=== PATIENT | male | born 1950 ===

== ENCOUNTER 2020-03-23 01:14 | Observation (INO) | payer OTHER, MEDICARE ==
[~2020-03-23] VITALS: Ht 182.9 cm; Wt 75.2 kg
[~2020-03-23 01:14] MED LIST: FLUO20; METTREX2.5; [UNRECOGNIZED DRUG - OTHER]
[2020-03-23 01:53] LABS: BASOPHILS ABSOLUTE AUTO 0.03 K/mm3 (0.00-0.23); BASOPHILS PERCENT AUTO 0 % (0-2); EOSINOPHILS ABSOLUTE AUTO 0.16 K/mm3 (0.00-0.68); EOSINOPHILS PERCENT AUTO 2 % (0-6); Hematocrit 26.7 % (37.0-53.0); Hemoglobin 8.6 g/dL (13.5-17.5); IMMATURE GRAN ABSOLUTE AUTO 0.04 K/mm3 (0.00-0.10); IMMATURE GRAN PERCENT AUTO 1 % (0-1); LYMPHOCYTES ABSOLUTE AUTO 2.22 K/mm3 (0.84-5.20); LYMPHOCYTES PERCENT AUTO 30 % (21-46); MONOCYTES ABSOLUTE AUTO 0.92 K/mm3 (0.16-1.47); MONOCYTES PERCENT AUTO 12 % (4-13); Mean Corpuscular HGB 36.3 pg (26.0-34.0); Mean Corpuscular HGB Conc 32.2 g/dL (31.5-36.5); Mean Corpuscular Volume 113 fL (80-100); Mean Platelet Volume 9.1 fL (9.1-12.4); NEUTROPHILS ABSOLUTE AUTO 4.08 K/mm3 (1.96-9.15); NEUTROPHILS PERCENT AUTO 55 % (41-73); Platelet Count 134 K/mm3 (150-400); RDW Coefficient Variation 18.8 % (11.7-14.2); Red Blood Cell Count 2.37 M/mm3 (4.30-5.90); White Blood Cell Count 7.45 K/mm3 (4.00-11.30)
[2020-03-23 02:09] LABS: Alanine Aminotransfer (ALT/SGP 14 U/L (12-78); Albumin, Blood 1.7 g/dL (3.4-5.0); Albumin/Globulin Ratio 0.4 (0.8-1.8); Alk Phos 71 U/L (50-136); Anion Gap 5 mmol/L (6-16); Aspartate Aminotrans (AST/SGOT 66 U/L (12-37); Bilirubin, Total 7.1 mg/dL (0.1-1.0); Blood Urea Nitrogen 7 mg/dL (8-24); Bun/Creatinine Ratio 6.9 (12.0-20.0); CO2, Blood 31 mmol/L (21-32); Calcium, Blood 8.6 mg/dL (8.5-10.1); Chloride, Blood 100 mmol/L (98-108); Creatinine, Blood 1.02 mg/dL (0.60-1.20); Globulin, Blood 4.6 g/dL (2.2-4.0); Glomerular Filtration Rate >60 (60-); Glucose, Blood 86 mg/dL (70-99); Magnesium, Blood 1.8 mg/dL (1.6-2.4); Potassium, Blood 3.2 mmol/L (3.5-5.5); Sodium, Blood 136 mmol/L (136-145); Total Protein, Blood 6.3 g/dL (6.4-8.2); Troponin I 0.019 ng/mL (0.000-0.040)
[2020-03-23 02:12] LABS: International Normalized Ratio 1.67; Prothrombin Time Results 17.4 Sec (9.7-11.5)
[2020-03-23 03:27] LABS: Influenza A, PCR Negative (NEGATIVE); Influenza B, PCR Negative (NEGATIVE); Resp Syncytial Virus, PCR Negative (NEGATIVE); SARS-Cov-2 (COVID-19) PCR, MMC Negative (NEGATIVE)
[2020-03-23 03:37] LABS: Source, Urine Clean Catch
[2020-03-23 03:39] LABS: Blood, Urine 1+ (Neg); Glucose Qualitative, Urine Neg (Neg); Ketones, Urine 1+ (Neg); Leukocyte Esterase, Urine 1+ (Neg); Nitrite, Urine Pos (Neg); Protein, Urine 2+ (Neg); Urobilinogen, Urine 4+ (Normal)
[2020-03-23 03:56] LABS: Appearance, Urine Hazy (Clear); Bilirubin, Urine 3+ (Neg); Color, Urine Amber (P-Yellow)
[2020-03-23 03:58] LABS: Bacteria Few /hpf; Hyaline Casts 0-2 /lpf (0-2); Squamous Epithelial Cells Few /hpf (Few)
--- NOTE | 2020-03-23 06:24 | NUR ---
0600 PT ADMITTED TO ROOM 329 PER CART FROM ER VIA CART; REPORT RECEIVED FROM JASSI RADFORD IN ER; PTS WALLET WAS LOCKED UP VIA HOSPITAL SECURITY TO SAFE; PT ALERT AND ORIENTED X4; BED ALARM APPLIED FOR SAFETY.
--- NOTE | 2020-03-23 09:53 | NUR ---
Echocardiogram completed.
[2020-03-23] MEDS ORDERED: A AND D OINTM42.5 G1 TOP (09:57)
[2020-03-23] MEDS ORDERED: CALCIPOTRIENE60 G1 TOP (09:59)
[2020-03-23] MEDS ORDERED: DOXE50 PO (09:59)
[2020-03-23] MEDS ORDERED: FURO20 PO (10:01)
[2020-03-23] MEDS ORDERED: TAMS.4ER PO (10:01)
[2020-03-23] MEDS ORDERED: POTCHL20ER PO (10:01)
[2020-03-23 11:41] LABS: pH, Body Fluid 7.9
[2020-03-23 11:47] LABS: Albumin, Body Fluid 0.3 g/dL
[2020-03-23 11:49] LABS: Body Fluid WBC Count 140 /mm3 (0-999)
[2020-03-23 11:55] LABS: Protein, Body Fluid 0.9 g/dL
[2020-03-23 11:57] LABS: Lactate Dehydrogenase, Body Fl 29 U/L
[2020-03-23 12:17] LABS: Total Cell Count, Body Fluid 100
[2020-03-23 12:18] LABS: Appearance, Body Fluid Hazy (Clear); Color, Body Fluid Yellow (None-Yellow)
[2020-03-23 12:21] LABS: RBC Count, Body Fluid 7 /mm3 (0-0)
--- NOTE | 2020-03-23 12:40 | NUR ---
DNR BAND PLACED TO R WRIST. VERIFIED ORDER WITH JESSICA CREWS RN
--- NOTE | 2020-03-23 17:01 | NUR ---
LACK OF OUTPUT FROM STRAIGHT CATH PT HAD LITTLE TO NO OUTPUT AFTER STRAIGHT CATH. AFTER TALKING TO HANDLE MACHINE OPERATOR, JESSICA, IT WAS THOUGHT THAT ACITES MAY BE CONTRIBUTING TO A HIGHER BLADDER VOLUME THAN WHAT IS ACUTALLY THERE. DR. BEST NOTIFIED AND AGREES THIS IS LIKELY THE PROBLEM. URINE EXTREMELY CONCENTRATED, CONSISTANT WITH A SMALL AMOUNT OF URINE IN BLADDER. DR. BEST ORDERED TO CONTINUE MONITORING URINE OUTPUT FOR NOW.
--- NOTE | 2020-03-23 17:40 | NUR ---
SHIFT SUMMARY PT HAD PARACENTESIS TODAY WITH 4L REMOVED FROM ABD. PT VOIDED ONLY A SMALL AMOUNT TODAY. VERY CONCENTRATED URINE. PT POST VOID RESIDUAL REVEALED MORE THAN 715. STRAIGHT CATH COMPLETED WITH ONLY A FEW DROPS OF URINE OUTPUT. LIKELY PT LEFT OVER ACITES LEADING TO A FALSLY ELEVATED BLADDER SCAN VOLUME. DR. BEST AWARE. PT AFTERNOON BP 96/54. PROPRANOLOL HELD PER DR. BEST ORDER. PARAMETERS ADDED TO ORDER. PT EVAL COMPLETED THIS SHIFT. VS REVIEWED. WILL CONTINUE TO MONITOR UNTIL TURNOVER IS COMPLETE.
--- NOTE | 2020-03-23 19:25 | NUR ---
ASSUMED CARE RECEIVED REPORT FROM JASSI STANTON. ASSUMED CARE OF PT. PT ASLEEP AT THIS TIME, NO S/S ACUTE DISTRESS NOTED. DENIES PAIN OR NEEDS. CALL LIGHT, POSSESSIONS IN REACH, BED IN LOW POSITION. WCTM.
[2020-03-24 05:45] LABS: Hematocrit 22.8 % (37.0-53.0); Hemoglobin 7.3 g/dL (13.5-17.5); Mean Corpuscular HGB 36.1 pg (26.0-34.0); Mean Corpuscular Volume 113 fL (80-100); Mean Platelet Volume 9.2 fL (9.1-12.4); Platelet Count 110 K/mm3 (150-400); RDW Coefficient Variation 18.3 % (11.7-14.2); RDW Standard Deviation 75.7 fL (35.1-46.3); Red Blood Cell Count 2.02 M/mm3 (4.30-5.90); White Blood Cell Count 4.98 K/mm3 (4.00-11.30)
[2020-03-24 06:06] LABS: Alanine Aminotransfer (ALT/SGP 11 U/L (12-78); Albumin, Blood 1.6 g/dL (3.4-5.0); Albumin/Globulin Ratio 0.5 (0.8-1.8); Alk Phos 60 U/L (50-136); Anion Gap 4 mmol/L (6-16); Aspartate Aminotrans (AST/SGOT 45 U/L (12-37); Blood Urea Nitrogen 7 mg/dL (8-24); Bun/Creatinine Ratio 7.4 (12.0-20.0); CO2, Blood 30 mmol/L (21-32); Chloride, Blood 100 mmol/L (98-108); Creatinine, Blood 0.94 mg/dL (0.60-1.20); Globulin, Blood 3.5 g/dL (2.2-4.0); Glomerular Filtration Rate >60 (60-); Glucose, Blood 115 mg/dL (70-99); Potassium, Blood 3.3 mmol/L (3.5-5.5); Sodium, Blood 134 mmol/L (136-145); Total Protein, Blood 5.1 g/dL (6.4-8.2)
[2020-03-24 06:26] LABS: BASOPHILS PERCENT MAN 0 % (0-2); EOSINOPHILS ABSOLUTE MAN 0.09 K/mm3 (0.00-0.68); EOSINOPHILS PERCENT MAN 2 % (0-6); LYMPHOCYTES ABSOLUTE MAN 1.59 K/mm3 (0.84-5.20); LYMPHOCYTES PERCENT MAN 32 % (21-46); MONOCYTES ABSOLUTE MAN 0.49 K/mm3 (0.16-1.47); MONOCYTES PERCENT MAN 10 % (4-13); NEUTROPHILS ABSOLUTE MAN 2.78 K/mm3 (1.96-9.15); SEG NEUTROPHILS PERCENT MAN 56 % (41-73); TOTAL CELLS COUNTED 100
--- NOTE | 2020-03-24 07:30 | NUR ---
SHIFT SUMMARY PT RESTING COMFORTABLY, NO S/S ACUTE DISTRESS NOTED. WAS MONITORED EVERY 1-2 HOURS WITH NEEDS MET. VS REVIEWED, WNL. NOT SCORING ON CIWAS. PT BLADDER SCANNED THIS SHIFT, REPORTED >551ML. PT REFUSED STRAIGHT CATH. NO OTHER ACUTE EVENTS NOTED T/O NIGHT, SLEPT ON AND OFF. PT DENIES PAIN OR NEEDS AT THIS TIME. CALL LIGHT, POSSESSIONS IN REACH, BED IN LOW POSITION. REPORT GIVEN TO JASSI REYES.
[2020-03-24 08:10] LABS: HBSAG SCREEN Negative (Negative); HEP B CORE AB, TOT Negative (Negative); HEP C VIRUS AB 0.2 (0.0-0.9)
--- NOTE | 2020-03-24 19:24 | NUR ---
PT REALLY DID NOT WANT STRAIGHT CATH TODAY. REFUSING T/O DAY. STATED PAIN UPON INSERTION. FINALY CONVINCED HIM TO DO WITH LIDOCAIN. DR QUEEN AGREED. REJECTED INDWELLING F/C. HAD PUT A CONDOM CATH ON PT TO HELP HIM IN URINATING, BUT NOT ON SELF. SEEMED TO MAKE HIM MORE COMFORTABLE. GOT 150 CC OUT TODAY. ALSO, STRAIGHT CATHED. GOT ONLY 50 CC. ALSO BLADDERR SCAN SHOWS 999+. THIS IS LIKELY R/T THE ASCIETES PER . DR ALFREDO STOP BLADDER SCANS. NO OTHER CONCERNS TODAY. NO S/S ETOH WITHDRAWL. PT PLEASANT COOP T/O DAY. BED IN LOW POSITION, CALL LLITE IN REACH, CALLS APPROP
--- NOTE | 2020-03-24 20:30 | NUR ---
CALL TO HOSPITALIST, PT REQUESTING MED FOR SLEEP. DR. BECKHAM ORDERED MELATONIN 5MG PO QHS.
[2020-03-25 05:07] LABS: BASOPHILS ABSOLUTE AUTO 0.03 K/mm3 (0.00-0.23); BASOPHILS PERCENT AUTO 1 % (0-2); EOSINOPHILS ABSOLUTE AUTO 0.19 K/mm3 (0.00-0.68); EOSINOPHILS PERCENT AUTO 4 % (0-6); Hematocrit 23.9 % (37.0-53.0); Hemoglobin 7.8 g/dL (13.5-17.5); IMMATURE GRAN ABSOLUTE AUTO 0.03 K/mm3 (0.00-0.10); IMMATURE GRAN PERCENT AUTO 1 % (0-1); LYMPHOCYTES ABSOLUTE AUTO 1.55 K/mm3 (0.84-5.20); LYMPHOCYTES PERCENT AUTO 33 % (21-46); MONOCYTES ABSOLUTE AUTO 0.65 K/mm3 (0.16-1.47); MONOCYTES PERCENT AUTO 14 % (4-13); Mean Corpuscular HGB 36.4 pg (26.0-34.0); Mean Corpuscular HGB Conc 32.6 g/dL (31.5-36.5); Mean Corpuscular Volume 112 fL (80-100); NEUTROPHILS ABSOLUTE AUTO 2.32 K/mm3 (1.96-9.15); NEUTROPHILS PERCENT AUTO 49 % (41-73); Platelet Count 101 K/mm3 (150-400); RDW Coefficient Variation 17.8 % (11.7-14.2); RDW Standard Deviation 73.4 fL (35.1-46.3); Red Blood Cell Count 2.14 M/mm3 (4.30-5.90); White Blood Cell Count 4.77 K/mm3 (4.00-11.30)
--- NOTE | 2020-03-25 05:10 | NUR ---
SHIFT SUMMARY: VSS. AFEB. AAOX3. DENIES PAIN. ABD LARGE, ROUND, DISTENDED, FIRM TO TOUCH. GENERAL JAUNDICED APPEARANCE. PT REMAINED IN BED AND SLEPT MOST OF THE NIGHT. INCONTINENT VOIDS. NO ACUTE CONCERNS AT THIS TIME.
[2020-03-25 05:28] LABS: Alanine Aminotransfer (ALT/SGP 12 U/L (12-78); Albumin, Blood 1.6 g/dL (3.4-5.0); Albumin/Globulin Ratio 0.4 (0.8-1.8); Alk Phos 69 U/L (50-136); Anion Gap 5 mmol/L (6-16); Aspartate Aminotrans (AST/SGOT 45 U/L (12-37); Bilirubin, Total 3.4 mg/dL (0.1-1.0); Blood Urea Nitrogen 7 mg/dL (8-24); Bun/Creatinine Ratio 7.8 (12.0-20.0); CO2, Blood 30 mmol/L (21-32); Calcium, Blood 8.2 mg/dL (8.5-10.1); Chloride, Blood 98 mmol/L (98-108); Globulin, Blood 3.8 g/dL (2.2-4.0); Glomerular Filtration Rate >60 (60-); Glucose, Blood 109 mg/dL (70-99); Potassium, Blood 3.5 mmol/L (3.5-5.5); Sodium, Blood 133 mmol/L (136-145); Total Protein, Blood 5.4 g/dL (6.4-8.2)
--- NOTE | 2020-03-25 16:25 | NUR ---
PT IS A/OX3, PLEASANT AND COOPERATIVE, THE PT APPEARS TO BE BREATHING EASILY ON RA AT THIS TIME, THE PT WAS UP THIS AM WITH ASSISTANCE TO THE CHAIR FOR BREAKFAST AND TO THE BS, THE PT HAD A MEDIUM SIZED FORMED BM THIS AM, THE PT IS DUSKY IN COLOR, ABD IS FIRM AND DISTENDED, PT DENIES ANY PAIN AT THIS TIME, PT WAS UP WITH THE PHYSICAL THERAPIST TODAY AND STOOD AT THE SIDE OF THE BED, FRIEND IS AT THE BEDSIDE AT THIS TIME, CALL LIGHT IN REACH, WILL CONTINUE TO MONITOR AND ASSESS FOR CHANGES
--- NOTE | 2020-03-26 04:12 | NUR ---
SHIFT SUMMARY: VSS. AFEB. 02 96% ON RA. ABD LARGE, ROUND, DISTENDED, TENDER W/PALPATION. APPEARS JAUNDICED. DENIES PAIN. DENIES SOB. REMAINED IN BED TONIGHT. APPEARS TO BE SLEEPING WELL. WILL CONT TO MONITOR.
--- NOTE | 2020-03-26 16:48 | NUR ---
PT IS A/OX3, PLEASANT AND COOPERATIVE, THEPT IS UP WITH MODERATE ASSIST, THE PT WAS UP IN THE CHAIR X1 TODAY, THE PT WAS UP WITH PHYSICAL THERAPY AND WAS ABLE TO WALK A SHORT DISTANCE, THE PT APPEARS TO BE BREATHING EASILY ON RA AT THIS TIME, PT ABD IS GROSSLY DISTENDED AND FIRM, PT STATES THAT HE IS FEEL ING REALY FULL AND TIGHT AND WOULD LIKE PERSUE ANOTHER PARACENTISIS IF POSSIBLE BEFORE DC, PTS CALL LIGHT IS WITHIN REACH, PTS FRIEND CAME IN TO VISIT WITH HIM TODAY
[2020-03-27 04:59] LABS: Alanine Aminotransfer (ALT/SGP 12 U/L (12-78); Albumin, Blood 1.6 g/dL (3.4-5.0); Albumin/Globulin Ratio 0.4 (0.8-1.8); Alk Phos 72 U/L (50-136); Anion Gap 6 mmol/L (6-16); Aspartate Aminotrans (AST/SGOT 48 U/L (12-37); Bilirubin, Total 2.4 mg/dL (0.1-1.0); Blood Urea Nitrogen 8 mg/dL (8-24); Bun/Creatinine Ratio 8.8 (12.0-20.0); CO2, Blood 29 mmol/L (21-32); Calcium, Blood 8.4 mg/dL (8.5-10.1); Chloride, Blood 96 mmol/L (98-108); Creatinine, Blood 0.91 mg/dL (0.60-1.20); Globulin, Blood 3.8 g/dL (2.2-4.0); Glomerular Filtration Rate >60 (60-); Glucose, Blood 128 mg/dL (70-99); Potassium, Blood 3.7 mmol/L (3.5-5.5); Sodium, Blood 131 mmol/L (136-145); Total Protein, Blood 5.4 g/dL (6.4-8.2)
--- NOTE | 2020-03-27 06:08 | NUR ---
SUMMARY PTHOPING TO GO TO A SNF SOON. HE IS ASKING THAT ANOTHER THERAPEUTIC PARACENTESIS IS DONE PRIOR TO ANY TRANSFER.HE WILL SPEAK WITH REGARDING THIS. I WILL ALSO MENTION IN REPORT TO NEXT SHIFT. AT THIS TIME NO KNOWN SNF BED AVAILABILITY.
--- NOTE | 2020-03-27 17:36 | NUR ---
SHIFT SUMMARY PT RESTING QUIETLY AT START OF SHIFT. WOKE EASILY FOR CARE. TOLERATED MEDS, BUT NOT EATING VERY MUCH AT ALL. ABD VERY SWOLLEN AND TIGHT. PT IS VERY SWOLLEN FROM TOP OF ABD TO BOTTOM OF FEET, INCLUDING SCROTUM; ALL SKIN IS VERY TIGHT AND SOMEWHAT SHINNY. PT WAITING TO BE D/C'D TO SNF ON SUNDAY. PARACENTESIS TO BE DONE AGAIN POSSIBLY TOMORROW FOR COMFORT. PT ADMITTED FOR CIRRHOSIS AND ASCITES. REPORTS THAT HE LIVES ALONE. PT UNABLE TO CARE FOR HIMSELF AT THIS TIME D/T HIS CONDITION AND WEAKNESS. BLE'S VERY DARK AND SWOLLEN; KEPT ELEVATED ON PILLOWS THRU OUT THE DAY. PT UP TO CHAIR AFTER BREAKFAST FOR A FEW MINUTES AND THEN WANTING RIGHT BACK TO BED. P/T HERE TO WORK WITH PT THIS AM. DR QUEEN IN TO SEE PT TODAY. POSSIBLE PARACENTESIS TOMORROW. VISITOR HERE EARLIER TO SEE PT. PT RESTING QUIETLY AT THIS TIME. CALL LT IN REACH.
[2020-03-28 05:18] LABS: Alanine Aminotransfer (ALT/SGP 15 U/L (12-78); Albumin, Blood 1.5 g/dL (3.4-5.0); Albumin/Globulin Ratio 0.4 (0.8-1.8); Alk Phos 62 U/L (50-136); Anion Gap 7 mmol/L (6-16); Aspartate Aminotrans (AST/SGOT 51 U/L (12-37); Bilirubin, Total 2.5 mg/dL (0.1-1.0); Blood Urea Nitrogen 9 mg/dL (8-24); Bun/Creatinine Ratio 11.5 (12.0-20.0); CO2, Blood 27 mmol/L (21-32); Calcium, Blood 8.5 mg/dL (8.5-10.1); Chloride, Blood 96 mmol/L (98-108); Creatinine, Blood 0.79 mg/dL (0.60-1.20); Globulin, Blood 3.8 g/dL (2.2-4.0); Glomerular Filtration Rate >60 (60-); Glucose, Blood 110 mg/dL (70-99); Potassium, Blood 3.8 mmol/L (3.5-5.5); Sodium, Blood 130 mmol/L (136-145); Total Protein, Blood 5.3 g/dL (6.4-8.2)
--- NOTE | 2020-03-28 06:38 | NUR ---
03/28/20 0600 PT SELPT WELL. RN ENCOURAGED ORAL INTAKE ON AND OFF BUT PT DECLINED MORE THAN FEW SIPS AT A TIME. STRESSED IMPORTANCE OF NUTRITION BUT STATES HE WAS NOT THIRSTY OR HUNGRY. SLIGHT FEVER AROUND 2 AM. NO C/O DISCOMFORT.
--- NOTE | 2020-03-28 10:05 | NUR ---
Spoke with Bedside JASSI Hawley and discussed case. Pt is adamant about leaving AMA. Pt has end stage liver disease and requires 2 person assistance with transfers. Pt requires one persaon stanbye with walker and gait belt with ambulation. Pt only able to ambulate from bed to chair and back. Pt requires assistance with bathing, dressing, and is incontinent of bowel and bladder. Pt also has poor appetite. Pt resting in bed with sleep mask ever his eyes. Pt reports 9/10 pain in his abdomen. Significant abdomen distention noted. Pt appears cachetic. Engaged in therapeutic listening as Pt reports plan to leave for home today. Continued therapeutic listening and validated concerns. Pt is wanting to go home, put his sweat pants on and smoke a cigarrette. Discussed potential alternate solutions, such as wearing his sweat pants here at the hospital and wearing a nicotine patch. Pt still adamant about returning home today. Listened as Pt reports dislike of being in the hospital. Discussed hospice as a potential option. Educated on hospice philosophy with Pt reporting interest. Discussed the need to arrange hospice services which could potential take a day or two. Pt reports plan to still leave AMA today. Pt is agreeable to paracentesis if this can occur today. Pt reports no other concerns at this time. Spoke with Dr Liz and discussed case. PPS 50% ADLs 5/6 INR 1.67 Albumin 1.5 Ongoing ascites with last paracentesis on 03/23/20 Pt appears appropriate for hospice if he chooses this option. Palliative Care will remain available.
--- NOTE | 2020-03-28 12:44 | NUR ---
SHIFT SUMMARY PT RESTING QUIETLY AT START OF SHIFT. PT WANTING TO GO HOME EARLY THIS AM. DR QUEEN IN TO SEE PT; ATTEMPTED TO DISCUSS PLAN OF CARE AND GOING TO SNF POSSIBLY TOMORROW. PT WANTING AND INSISTING ON GOING AMA. PT UNABLE TO CARE FOR HIMSELF AT HOME. 2P ASSIST TO GET OOB AND UP TO CHAIR. PT DID DO BETTER TODAY IN GETTING TO CHAIR FOR BREAKFAST, BUT STILL REQUIRED 2P ASSIST TO GET UP AND DOWN. PT ABLE TO USE WALKER TO TAKE A COUPLE OF STEPS TODAY, WITH 1P ASSIST AFTER GETTING UP, TO GET TO CHAIR AND AGAIN BACK TO THE BED. PT UNABLE TO SIT UP FOR MORE THAN JUST A COUPLE OF MINUTES AND IMMEDIATELY WANTING TO LAY BACK DOWN. PT SCHEDULED FOR PARACENTESIS; SLIDE TX TO [place], 6.8L FLUID REMOVED. PT NOW RECEIVING ALBUMIN PER PHARMACY AFTER COMING BACK TO ROOM. PT ATE A LITTLE BETTER TODAY THAN HE HAS BEEN. STILL NOT ENOUGH, BUT IMPROVED. PALLIATIVE CARE IN TO TALK WITH PT THIS AM. PT WANTING TO GO HOME ON HOSPICE. REFERRAL TO BE PUT IN. CARNIVAL WORKER TO WORK ON DETAILS TOMORROW. PT LATER REPORTED THAT HE WILL "CLEAN UP MY ATTITUDE" AND NOT GO AMA AT THIS POINT TODAY. PT IS ALSO INCONTINENT OF BOWEL AND BLADDER FOR THE MOST PART, HE IS UNABLE TO GET TO THE BATHRM OR EVEN BSC. RESTING QUIETLY WITH EYE MASK ON. DENIED FURTHER NEEDS AT THIS TIME. CALL LT IN REACH.
--- NOTE | 2020-03-29 07:25 | NUR ---
03/29/20 0600 VITALS STABLE. STILL ONLY KELL SMALL ATS OF ORAL INTAKE. TURNED WHEN HE WOULD LET STAFF REPOSITION OF BACK. MEPILEX APPLIED TO RED COCCYX ARE.
--- NOTE | 2020-03-29 14:55 | NUR ---
LEMON PICKER BANDAR AT BEDSIDE AND PATIENT FILLED OUT AMA FORM. RISKS OF LEAVING AMA WERE DISCUSSED WITH PATIENT AND HE CONTINUES TO WANT TO LEAVE INSTEAD OF GOING TO THE [facility] ON HOSPICE CARE. FRIEND GONZALO ARRIVED TO WILDLIFE PHOTOGRAPHER PATIENT AND SHE DID NOT BRING A W/C. GONZALO WAS UNAWARE THAT PATIENT WAS REQUIRING 2 MAX ASSIST WITH TRANSFERRING. SHE WAS ALSO UNAWARE THAT PATIENT WAS LEAVING AMA AND THAT STAFF WOULD NOT BE ABLE TO ASSIST WITH HIM LEAVING. GONZALO EXPRESSED TO ME AND THE PATIENT THAT SHE DID NOT FEEL COMFORTABLE TAKING HIM HOME AND DID NOT FEEL THAT SHE WOULD BE ABLE TO TRANSFER HIM IN AND OUT OF THE CAR AND INTO HIS HOUSE. PATIENT CONTINUED TO INSIST THAT SHE TAKE HIM HOME AND HANDED HER HIS CREDIT CARD TO GO BY [employer] AND GET HIM A W/C. GONZALO TOLD HIM THAT SHE WOULD BE BACK IN A FEW HOURS, BUT STOPPED ME IN THE [place] IN TEARS AND SAID SHE WOULD CALL HIM IN A FEW HOURS AND TELL HIM AGAIN THAT SHE IS UNABLE TO TAKE HIM HOME IN HIS CURRENT STATE. BANDAR WAS NOTIFIED OF THIS AND WILL CONTINUE TO FACILITATE TRANSFER OPTIONS IF PATIENT IS UNABLE TO ARRANGE A RIDE HOME.
--- NOTE | 2020-03-29 17:12 | NUR ---
PATIENT CONTINUES TO WANT TO LEAVE AMA, BUT HASN'T FOUND SOMEONE TO COME AND PICK HIM UP. PLEURX DRAIN WILL NOT BE PLACED FOR 4-5 MORE DAYS SINCE PARACENTESIS WAS JUST DONE YESTERDAY. CARE MANAGERS CONTINUE TO LOOK FOR PLACEMENT FOR PATIENT TO GO ON HOSPICE. MEPILEX TO COCCYX REMAINS C/D/I. REPOSITIONING Q2 HOURS. PAIN TO BLE RELIEVED WITH REPOSITIONING. CALLS APPROPRIATELY FOR ASSISTANCE.
--- NOTE | 2020-03-30 00:22 | NUR ---
ATTEMPTS TO LEAVE AMA PT CALLED STAFF TO INFORM US HE CALLED A CAB. THIS NURSE REMINDED PT THAT IN ORDER TO LEAVE AMA HE HAS TO BE ABLE TO GET UP OOB AND PHYSICALLY LEAVE THE BUILDING INDEPENDENTLY. PT STATES HE UNDERSTANDS AND HE HAS "SOMEONE FROM EMERGENCY COMING UPSTAIRS TO GET ME". WILL CONT TO MONITOR THE SITUATION.
--- NOTE | 2020-03-30 03:40 | NUR ---
PT REQUESTING DNR BAND BE REMOVED. WANTS TO BE FULL CODE. ANSWERING ALL ORIENTATION QUESTIONS APPOPRIATELY. A/OX4. NURSE NOTIFY WRITTEN AND WILL DISCUSS W/DAY RN TO ASK MD TO REVIEW CODE STATUS W/PT TODAY.
--- NOTE | 2020-03-30 06:34 | NUR ---
SHIFT SUMMARY: VSS. AFEB. TEMPS 99.0, 99.7. NO FURTHER COMMENTS TONIGHT ABOUT LEAVING AMA. ABD FIRM, MILDLY DISTENDED. REMAINED IN BED. DENIES PAIN. INCONT/CONT VOIDS, SMALL AMT EACH TIME. PT MAKES NEEDS KNOWN. NO ACUTE CHANGES.
--- NOTE | 2020-03-30 12:47 | NUR ---
Supportive Visit Pt resting in bed upon arrival. Engaged in therapeutic listening as Pt expresses wishes about returning home with hospice versus SNF with hospice. Pt reports beeing more comfortable at home and feels powerless in his D/C plan. Continued therapeutic listening as Pt expresses concerns regarding his lack of autonomy. Validated concerns and answered questions. Pt reports being a and states he is 70% service connected. Pt inquires about the OR binder and wrapper packer program. Pt reports still being interested in hospice and wishes to avoid hospitalization but states he would prefer to be at home. Instructed his request will be relayed to care. Listened as Pt reports changing his code status to Full Code. Explored reasons with Pt stating his brother committed suicide and the family was devastated. Re-enforced education on hospice philosophy with Pt stating he still wants hospice. Spoke with Bedside RN Talia and discussed case. Left message with Caremanager Weinberg with request to discuss case. Palliative Care will remain available.
--- NOTE | 2020-03-30 15:33 | NUR ---
F/U joint visit with Caremanager Sultana. Engaged in therapeutic discussion regarding goals of care. Pt reports he is no longer interested in pursuing hospice. He states he wants to try and get better and have a conversation with his children regarding his condition. Discussed the need for SNF to assist with increased function and strength. Pt agreeable with SNF and is also agreeable for caremanager to inquire about [facility] for when he returns home. Continued therapeutic listening and answered questions. Spoke with Dr Weathers and discussed case. Palliative Care will remain available.
--- NOTE | 2020-03-30 16:15 | NUR ---
PATIENT SPOKE AT LENGTH WITH PALLIATIVE CARE AND LOCATION DIRECTOR TODAY AND HAS DECIDED TO GO TO A SNF FOR REHAB. WORKED WITH PT TODAY AND WAS ABLE TO AMBULATE TO DOOR AND BACK TO BED. INCONTINENT OF URINE, WEARING ATTENDS. MEPILEX TO PRESSURE SORE ON SACRUM REMAINS C/D/I. FEET ELEVATED ON PILLOW AND HEEL PROTECTORS IN PLACE. TOLERATING SMALL AMOUNTS OF REGULAR DIET, NEEDS ENCOURAGEMENT. ABLE TO FEED HIMSELF. IV PULLED AND PATIENT REFUSES TO HAVE ANOTHER LINE STARETED. COOPERATIVE WITH CARE TODAY AND ABLE TO MAKE NEEDS KNOWN.
--- NOTE | 2020-03-30 17:22 | NUR ---
Initial spiritual care note: Mr. Caceres is soft-spoken and appears quite frail/debillitated. He appears to have poor insight into his disease process even though his dire prognosis has been explained to him. He wants to have "everything done" to stay alive. That said, he does not want to have to come back to hospital. He would like to keep drinking and smoking in his own home. He says he has good friends that help him with groceries and some ADLs, but they are not present 23/10. He spoke at length to me about the loss of his brother several years ago to suicide. It appears his drinking escalated after this event. He seems to think he will somehow get better/stronger once home. He has no intention of changing his lifestyle. His is unwilling to live anywhwere but in his own home. All this said, he was pleasant and appreciative of theraputic listening. He is non-jewish and did not want prayer/spiritual support. I will remain available.
[2020-03-31 05:30] LABS: BASOPHILS ABSOLUTE AUTO 0.08 K/mm3 (0.00-0.23); BASOPHILS PERCENT AUTO 2 % (0-2); EOSINOPHILS ABSOLUTE AUTO 0.26 K/mm3 (0.00-0.68); EOSINOPHILS PERCENT AUTO 6 % (0-6); Hematocrit 25.3 % (37.0-53.0); Hemoglobin 8.3 g/dL (13.5-17.5); IMMATURE GRAN ABSOLUTE AUTO 0.05 K/mm3 (0.00-0.10); IMMATURE GRAN PERCENT AUTO 1 % (0-1); LYMPHOCYTES ABSOLUTE AUTO 1.66 K/mm3 (0.84-5.20); LYMPHOCYTES PERCENT AUTO 36 % (21-46); MONOCYTES ABSOLUTE AUTO 0.65 K/mm3 (0.16-1.47); MONOCYTES PERCENT AUTO 14 % (4-13); Mean Corpuscular HGB 36.9 pg (26.0-34.0); Mean Corpuscular HGB Conc 32.8 g/dL (31.5-36.5); Mean Corpuscular Volume 112 fL (80-100); NEUTROPHILS ABSOLUTE AUTO 1.93 K/mm3 (1.96-9.15); NEUTROPHILS PERCENT AUTO 42 % (41-73); Platelet Count 126 K/mm3 (150-400); RDW Coefficient Variation 15.7 % (11.7-14.2); Red Blood Cell Count 2.25 M/mm3 (4.30-5.90); White Blood Cell Count 4.63 K/mm3 (4.00-11.30)
[2020-03-31 05:51] LABS: International Normalized Ratio 1.36; Prothrombin Time Results 14.3 Sec (9.7-11.5)
[2020-03-31 06:04] LABS: Percent Saturation 45.4 % (20.0-50.0)
--- NOTE | 2020-03-31 06:29 | NUR ---
SHIFT SUMMARY PT IS A 69 Y/O MALE, ADMITTED FOR CIRRHOSIS AND NEW ONSET ASCITES R/T CHRONIC ETOH. HE IS A&O X 4, IRRITABLE AT TIMES. NO C/O PAIN, NAUSEA OR SOB. BP WAS LOW THIS AM, IN THE 80-90S SYSTOLIC. VITAL SIGNS OTHERWISE STABLE. NO ACUTE CHANGES IN PT CONDITION NOTED DURING THE NIGHT. WILL CONTINUE TO MONITOR AND TREAT PER EMAR UNTIL HAND OFF TO DAY SHIFT RN.
[2020-03-31 07:33] LABS: Alanine Aminotransfer (ALT/SGP 13 U/L (12-78); Albumin, Blood 1.8 g/dL (3.4-5.0); Albumin/Globulin Ratio 0.5 (0.8-1.8); Alk Phos 57 U/L (50-136); Anion Gap 5 mmol/L (6-16); Aspartate Aminotrans (AST/SGOT 36 U/L (12-37); Bilirubin, Total 2.2 mg/dL (0.1-1.0); Blood Urea Nitrogen 8 mg/dL (8-24); Bun/Creatinine Ratio 8.9 (12.0-20.0); CO2, Blood 28 mmol/L (21-32); Calcium, Blood 8.2 mg/dL (8.5-10.1); Chloride, Blood 98 mmol/L (98-108); Globulin, Blood 3.6 g/dL (2.2-4.0); Glomerular Filtration Rate >60 (60-); Glucose, Blood 116 mg/dL (70-99); Magnesium, Blood 1.7 mg/dL (1.6-2.4); Phosphorus, Blood 2.2 mg/dL (2.5-4.9); Potassium, Blood 3.7 mmol/L (3.5-5.5); Sodium, Blood 131 mmol/L (136-145); Total Protein, Blood 5.4 g/dL (6.4-8.2)
--- NOTE | 2020-03-31 17:21 | NUR ---
1420 PT ASSIST TO W/C, FRIEND AT BEDSIDE. FRIEND WHEELED PT TO GO TO VISITOR SMOKING AREA. 1550 PT DID NOT RETURN TO ROOM. SECURITY NOTIFIED. 1630 SECURITY NOTIFIED THIS RN THAT PT LEFT IN CAR AT 1435. 1715 DR[address] MACHADO NOTIFIED.
== END 2020-03-31 16:30 | disposition left against medical advice (07) ==
LOC: ER 01:14 → MEDS 01:15
PROVIDERS: Emergency Medicine; Internal Medicine; ADMIT Internal Medicine
DX: K70.31 Alcoholic cirrhosis of liver with ascites (principal); K70.11 Alcoholic hepatitis with ascites; F10.20 Alcohol dependence, uncomplicated; E87.6 Hypokalemia; K76.6 Portal hypertension; E88.09 Other disorders of plasma-protein metabolism, not elsewhere classified; E87.1 Hypo-osmolality and hyponatremia; F43.10 Post-traumatic stress disorder, unspecified; N40.0 Benign prostatic hyperplasia without lower urinary tract symptoms; L40.9 Psoriasis, unspecified; G47.00 Insomnia, unspecified; D63.8 Anemia in other chronic diseases classified elsewhere; D68.9 Coagulation defect, unspecified; R64 Cachexia; D69.6 Thrombocytopenia, unspecified; Z53.29 Procedure and treatment not carried out because of patient's decision for other reasons; F32.9 Major depressive disorder, single episode, unspecified; Z20.828 Contact with and (suspected) exposure to other viral communicable diseases; Z79.899 Other long term (current) drug therapy; Z88.0 Allergy status to penicillin; Z68.23 Body mass index [BMI] 23.0-23.9, adult; Z74.09 Other reduced mobility; Z23 Encounter for immunization
CPT/HCPCS: 0241U; 36415; 49083; 71045; 74177; 80053; 81001; 82042; 82140; 82607; 82728; 82746; 83540; 83550; 83615; 83690; 83735; 83880; 83986; 84100; 84157; 84484; 85025; 85610; 85730; 86317; 86704; 86708; 86803; 87070; 87086; 87205; 87340; 88108; 88305; 89051; 93005; 93010; 93306; 96365; 96366; 96367; 97110; 97116; 97161; 97530; 99285-25; A9270; G0378; J3411; J3475; J7042; P9046; Q9967

== ENCOUNTER 2020-05-25 14:08 | Day surgery (SDC) | payer OTHER ==
[~2020-05-25 14:08] MED LIST changes: +A AND D OINTM42.5 G1 TOP; +CALCIPOTRIENE60 G1 TOP; +DOXE50 PO; +FURO20 PO; +POTCHL20ER PO; +TAMS.4ER PO
== END 2020-05-25 23:06 | disposition home or self-care (01) ==
LOC: US 14:08
DX: K70.31 Alcoholic cirrhosis of liver with ascites (principal); F10.20 Alcohol dependence, uncomplicated; Z88.0 Allergy status to penicillin; Z88.6 Allergy status to analgesic agent; Z88.8 Allergy status to other drugs, medicaments and biological substances
CPT/HCPCS: 49083